=== PATIENT | male | born 1940 | race Caucasian/White ===

== ENCOUNTER 2016-03-16 08:35 | Outpatient (CLI) | payer MEDICARE ==
[2016-03-16 09:30] LABS: #Eosinphils 0.2 thou/uL (0.0-0.7); #Lymphocytes 2.7 thou/uL (1.20-3.40); #Monocytes 0.6 thou/uL (0.11-0.59); #Neutrophils 3.7 thou/uL (1.40-6.50); %Basophils 0.6 % (0.0-1.0); %Eosinophils 2.7 % (0.0-10.0); %Lymphocytes 37.3 % (21.0-51.0); %Monocytes 8.1 % (0.0-10.0); Hematocrit 43.8 % (42.0-52.0); Mean Platelet Volume 7.6 fL (7.4-10.4); Red Blood Cell (RBC) Count 4.75 mill/uL (4.70-6.10); White Blood Cell (WBC) Count 7.3 thou/uL (4.8-10.8)
== END 2016-03-16 08:36 | disposition home or self-care (01) ==
LOC: NAV LABSP 08:35
PROVIDERS: ATTEND Internal Medicine
DX: R50.9 Fever, unspecified (principal); E11.9 Type 2 diabetes mellitus without complications; R13.10 Dysphagia, unspecified; A41.9 Sepsis, unspecified organism
CPT/HCPCS: 36415; 85025

== ENCOUNTER 2016-03-30 07:36 | Outpatient (CLI) | payer MEDICARE ==
[2016-03-30 09:12] LABS: Anion Gap 16 mmol/L (10-20); BUN (Urea Nitrogen) 7 mg/dL (8.4-25.7); Calc. Creatinine Clearance 0 mL/min (70-130); Calcium 8.1 mg/dL (7.8-10.44); Carbon Dioxide 18 mmol/L (23-31); Chloride 109 mmol/L (98-107); Estimated GFR-MDRD Greater than 90
[2016-03-30 09:19] LABS: Hemoglobin A1c 8.5 % (4.0-6.0)
== END 2016-03-30 07:37 | disposition home or self-care (01) ==
LOC: NAV LABSP 07:36
PROVIDERS: ATTEND Internal Medicine
DX: E11.9 Type 2 diabetes mellitus without complications (principal); I10 Essential (primary) hypertension
CPT/HCPCS: 36415; 80048; 83036

== ENCOUNTER 2016-05-14 07:57 | Outpatient (CLI) | payer MEDICARE ==
[2016-05-14 08:49] LABS: Anion Gap 13 mmol/L (10-20); BUN (Urea Nitrogen) 10 mg/dL (8.4-25.7); Calc. Creatinine Clearance 0 mL/min (70-130); Calcium 8.2 mg/dL (7.8-10.44); Carbon Dioxide 23 mmol/L (23-31); Chloride 112 mmol/L (98-107); Estimated GFR-MDRD Greater than 90; Potassium 3.5 mmol/L (3.5-5.1); Sodium 144 mmol/L (136-145)
[2016-05-14 08:53] LABS: Hemoglobin A1c 8.5 % (4.0-6.0)
[2016-05-14 10:29] LABS: Glucose 59 mg/dL (83-110)
== END 2016-05-14 07:58 | disposition home or self-care (01) ==
LOC: NAV LABSP 07:57
PROVIDERS: ATTEND Internal Medicine
DX: E08.9 Diabetes mellitus due to underlying condition without complications (principal); I10 Essential (primary) hypertension
CPT/HCPCS: 36415; 80048; 83036

== ENCOUNTER 2016-07-15 16:44 | Outpatient (CLI) | payer MEDICARE ==
[2016-07-15 20:16] LABS: #Basophils 0.1 thou/uL (0.0-0.2); #Eosinphils 0.4 thou/uL (0.0-0.7); #Lymphocytes 2.3 thou/uL (1.20-3.40); #Monocytes 0.4 thou/uL (0.11-0.59); #Neutrophils 3.5 thou/uL (1.40-6.50); %Basophils 0.8 % (0.0-1.0); %Lymphocytes 34.6 % (21.0-51.0); %Neutrophils 52.7 % (42.0-75.0); Hemoglobin 13.5 g/dL (14.0-18.0); Mean Corpuscular Hemoglobin 29.5 pg (27.0-31.0); Mean Corpuscular Volume 92.4 fl (80.0-94.0); Mean Platelet Volume 7.9 fL (7.4-10.4); Platelet Count 233 thou/uL (130-400); RBC Distribution Width 14.1 % (11.5-14.5); Red Blood Cell (RBC) Count 4.59 mill/uL (4.70-6.10); White Blood Cell (WBC) Count 6.7 thou/uL (4.8-10.8)
[2016-07-15 20:36] LABS: Hemoglobin A1c 6.3 % (4.0-6.0)
[2016-07-15 20:41] LABS: ALT (SGPT) 12 U/L (8-55); AST (SGOT) 11 U/L (5-34); Alkaline Phosphatase 85 U/L (40-150); Anion Gap 11 mmol/L (10-20); BUN (Urea Nitrogen) 8 mg/dL (8.4-25.7); Bilirubin, Total 0.6 mg/dL (0.2-1.2); Calc. Creatinine Clearance 0 mL/min (70-130); Calcium 8.3 mg/dL (7.8-10.44); Carbon Dioxide 28 mmol/L (23-31); Chloride 106 mmol/L (98-107); Estimated GFR-MDRD Greater than 90; Glucose 210 mg/dL (83-110); Potassium 4.1 mmol/L (3.5-5.1); Sodium 141 mmol/L (136-145)
== END 2016-07-15 16:45 | disposition home or self-care (01) ==
LOC: NAV NNR 16:44
PROVIDERS: ATTEND Internal Medicine
DX: E11.59 Type 2 diabetes mellitus with other circulatory complications (principal); I10 Essential (primary) hypertension
CPT/HCPCS: 36415; 80053; 83036; 83880; 84443; 85025

== ENCOUNTER 2016-10-28 13:58 | Outpatient (CLI) | payer MEDICARE ==
[2016-10-28 14:21] LABS: ALT (SGPT) 16 U/L (8-55); AST (SGOT) 14 U/L (5-34); Albumin 3.3 g/dL (3.4-4.8); Alkaline Phosphatase 95 U/L (40-150); Anion Gap 13 mmol/L (10-20); BUN (Urea Nitrogen) 8 mg/dL (8.4-25.7); Bilirubin, Total 0.8 mg/dL (0.2-1.2); Calc. Creatinine Clearance 0 mL/min (70-130); Calcium 8.7 mg/dL (7.8-10.44); Carbon Dioxide 27 mmol/L (23-31); Cardiac Risk 4.9 (Less than 4.5); Chloride 108 mmol/L (98-107); Cholesterol 176 mg/dl (< 200 Desired); Estimated GFR-MDRD Greater than 90; Globulin 3.1 g/dL (2.4-3.5); Glucose 201 mg/dL (83-110); HDL Cholesterol 36 mg/dL (>60 Neg Risk); LDL Cholesterol, Calculated 116 mg/dL; Potassium 3.9 mmol/L (3.5-5.1); Protein, Total 6.4 g/dL (5.8-8.1); Sodium 144 mmol/L (136-145); Triglycerides 118 mg/dL (Less than 150)
[2016-10-28 14:25] LABS: #Basophils 0.1 thou/uL (0.0-0.2); #Eosinphils 0.4 thou/uL (0.0-0.7); #Lymphocytes 2.4 thou/uL (1.20-3.40); #Monocytes 0.6 thou/uL (0.11-0.59); #Neutrophils 6.9 thou/uL (1.40-6.50); %Basophils 0.5 % (0.0-1.0); %Eosinophils 3.8 % (0.0-10.0); %Lymphocytes 23.3 % (21.0-51.0); %Monocytes 5.9 % (0.0-10.0); %Neutrophils 66.5 % (42.0-75.0); Hemoglobin 14.9 g/dL (14.0-18.0); Mean Corpuscular Hemoglobin 28.6 pg (27.0-31.0); Mean Corpuscular Volume 92.4 fl (80.0-94.0); Mean Platelet Volume 8.1 fL (7.4-10.4); Platelet Count 257 thou/uL (130-400); RBC Distribution Width 13.2 % (11.5-14.5); Red Blood Cell (RBC) Count 5.22 mill/uL (4.70-6.10); White Blood Cell (WBC) Count 10.3 thou/uL (4.8-10.8)
[2016-10-28 14:36] LABS: Hemoglobin A1c 7.8 % (4.0-6.0)
== END 2016-10-28 13:59 | disposition home or self-care (01) ==
LOC: NAVSJIPCSP 13:58
PROVIDERS: ATTEND Internal Medicine
DX: Z79.899 Other long term (current) drug therapy (principal)
CPT/HCPCS: 80053; 80061; 83036; 84443; 85025

== ENCOUNTER 2017-02-13 14:43 | Emergency (ER) | payer MEDICARE, MEDICAID ==
[2017-02-13 15:49] LABS: #Basophils 0.1 thou/uL (0.0-0.2); #Eosinphils 0.1 thou/uL (0.0-0.7); #Lymphocytes 2.1 thou/uL (1.20-3.40); #Monocytes 1.1 thou/uL (0.11-0.59); #Neutrophils 10.8 thou/uL (1.40-6.50); %Basophils 0.4 % (0.0-1.0); %Eosinophils 0.5 % (0.0-10.0); %Lymphocytes 14.8 % (21.0-51.0); %Monocytes 7.8 % (0.0-10.0); %Neutrophils 76.5 % (42.0-75.0); Hemoglobin 15.4 g/dL (14.0-18.0); Mean Corpuscular HGB CONC 31.8 g/dL (32.0-36.0); Mean Corpuscular Hemoglobin 29.3 pg (27.0-31.0); Mean Corpuscular Volume 91.9 fl (80.0-94.0); Mean Platelet Volume 10.7 fL (7.4-10.4); Platelet Count 248 thou/uL (130-400); RBC Distribution Width 12.8 % (11.5-14.5); Red Blood Cell (RBC) Count 5.26 mill/uL (4.70-6.10); White Blood Cell (WBC) Count 14.2 thou/uL (4.8-10.8)
[2017-02-13 16:12] LABS: CKMB 0.6 ng/mL (0-6.6); Troponin I 0.021 ng/mL (< 0.028)
[2017-02-13] MEDS ORDERED: Sodium Chloride 0.9% 1,000 ML ONE (16:13)
[2017-02-13 16:15] LABS: ALT (SGPT) 14 U/L (8-55); AST (SGOT) 25 U/L (5-34); Albumin 3.3 g/dL (3.4-4.8); Alkaline Phosphatase 95 U/L (40-150); Anion Gap 16 mmol/L (10-20); BUN (Urea Nitrogen) 17 mg/dL (8.4-25.7); Bilirubin, Total 1.4 mg/dL (0.2-1.2); Calc. Creatinine Clearance 0 mL/min (70-130); Calcium 8.8 mg/dL (7.8-10.44); Carbon Dioxide 25 mmol/L (23-31); Chloride 108 mmol/L (98-107); Estimated GFR-MDRD 75; Globulin 4.4 g/dL (2.4-3.5); Glucose 189 mg/dL (83-110); Potassium 4.7 mmol/L (3.5-5.1); Protein, Total 7.7 g/dL (5.8-8.1); Sodium 144 mmol/L (136-145)
--- NOTE | 2017-02-13 17:00 | RAD ---
AP VIEW CHEST: INDICATIONS: History of cough. COMPARISON: Prior exam dated 01/28/2014. IMPRESSION: No focal consolidation. Stable cardiomegaly. The remainder of the examination does not appear appre ciably changed from the comparison exam dated 01/28/2014. POS: [facility]
--- NOTE | 2017-02-13 18:48 | CT ---
ABDOMEN CT WITH CONTRAST: PELVIS CT WITH CONTRAST: HISTORY: Lower abdominal pain. CVA. Left hemiplegia. COMPARISON: None. TECHNIQUE: An abdomen and pelvis CT is performed with IV contrast. Enteric contrast was not administered. Laura nal reformatted images are submitted for interpretation. Enteric contrast was administered. FINDINGS: ABDOMEN: Presumed chronic changes in the lung bases. There are coronary calcifications. The heart size is within normal limits. No pericardial effusion. The descending thoracic aorta and the abdomi nal aorta have an overall normal caliber. No periaortic fat stranding. Possible short-segment chron ic dissection in the infrarenal abdominal aorta. Evaluation is limited by motion degradation. Symmetric attenuation of the psoas muscles. The gallbladder is surgically absent. The intrahepatic and extrahepatic portal vein is patent. Limited evaluation of the alimental canal and solid organs due to motion degradation. The liver, spl een, pancreas, and adrenal glands have appropriate enhancement. Symmetric enhancement of the kidneys. Mild cortical atrophy. No evidence of obstructive uropathy. No mesenteric mass, lymphadenopathy, free air, or free fluid. No gastrohepatic, retrocrural, or periportal lymphadenopathy. No evidence of small bowel obstruction. There is a segment of slightly prominent fluid-filled small bowel in the left hemiabdomen, measuring 3.8 cm. Findings are nonspecific, as the bowel loops proxim al and distal to this segment are decompressed. Focal ileus cannot be excluded. Limited evaluation of the ileocecal junction. The appendix cannot be assessed. No evidence of colon distention or dila tation. Scattered fecal material is present. There is diverticulosis without evidence of diverticul itis. PELVIS: There is mucosal thickening involving the urinary bladder with perivesicular stranding. Correlate for cystitis. No pelvic mass, lymphadenopathy, or free air. Non specific hypodensities in the right inguinal canal, measuring 2.6 x 1.6 cm. There is a large left in guinal hernia, containing intraabdominal fat and intraabdominal vessels, as well as a segment of the distal descending and proximal sigmoid colon. The opening of the inguinal hernia defect measures 4.4 cm. No evidence of colonic obstruction. There are no lytic or blastic lesions in the osseous structures. IMPRESSION: 1. Short-segment prominence of a segment of small bowel, nonspecific. Obstructive process is not fa vored. A small focal ileus cannot be excluded. 2. Left inguinal hernia containing mesenteric fat, as well as segment of colon through the left ingu inal hernia defect. The entire hernia was not completely assessed on this exam. No evidence of asso ciated bowel obstruction. The presence or absence of bowel strangulation/incarceration cannot be com pletely excluded, as the entire segment of herniated colon is not evaluated. Clinical correlation an d a surgical consultation are recommended. POS: [facility]
[2017-02-13 19:26] LABS: Lactic Acid 1.1 mmol/L (0.5-2.2)
[2017-02-13 22:20] LABS: Bilirubin Small (Negative); Blood, Urine Trace (Negative); Clarity Clear (Clear); Glucose, Urine (Dipstick) Negative (Negative); Leukocyte Small (Negative); Nitrite Positive (Negative); Protein, Urine (Dipstick) 100 mg/dL (Neg-Trace); Urobilinogen > or = 8.0 mg/dL (0.2-1.0); pH, Urine 5.5 (5.0-9.0)
[2017-02-13 22:29] LABS: Bacteria/HPF Rare-Few HPF (None Seen); RBC/HPF 0-3 HPF (0-3); Squamous Epithelial 0-3 HPF (0-3)
[2017-02-13] MEDS ORDERED: Cipro 250 MG TAB ONE (23:08)
== END 2017-02-14 00:08 ==
LOC: NAV ERS 14:43
DX: N30.00 Acute cystitis without hematuria (principal); J20.9 Acute bronchitis, unspecified; K21.9 Gastro-esophageal reflux disease without esophagitis; F32.9 Major depressive disorder, single episode, unspecified; I10 Essential (primary) hypertension; I69.352 Hemiplegia and hemiparesis following cerebral infarction affecting left dominant side; I25.10 Atherosclerotic heart disease of native coronary artery without angina pectoris; F03.90 Unspecified dementia, unspecified severity, without behavioral disturbance, psychotic disturbance, mood disturbance, and anxiety; Z79.82 Long term (current) use of aspirin; Z79.899 Other long term (current) drug therapy
CPT/HCPCS: 36415; 51702; 71010; 74177; 80053; 81003; 81015; 82553; 83605; 83880; 84484; 85025; 87040; 87077; 87086; 87186; 93005; 96360; 96361; J7050

== ENCOUNTER 2017-03-18 15:49 | Outpatient (CLI) | payer MEDICARE, MEDICAID | END 2017-03-18 15:50 | disposition home or self-care (01) | LOC: NAV LABSP 15:49 | PROVIDERS: ATTEND Internal Medicine | DX: J02.9 Acute pharyngitis, unspecified (principal) | CPT/HCPCS: 87081; 87430 ==

== ENCOUNTER 2017-11-04 08:46 | Outpatient (CLI) | payer MEDICARE, OTHER ==
[2017-11-04] MEDS ORDERED: Iopamidol 370 76% 100 ML VIAL ONE (09:00)
--- NOTE | 2017-11-04 10:36 | CT ---
CT ABDOMEN AND PELVIS WITH IV CONTRAST: INDICATIONS: Abdominal distention. COMPARISON: CT abdomen and pelvis from 02/13/2017. TECHNIQUE: Multiple axial tomograms obtained through the abdomen and pelvis with IV enhancement. FINDINGS: The lung bases are clear. The liver, spleen, and pancreas appear unremarkable. Post cholecystectomy changes noted. Adrenal glands and kidneys are unremarkable. No hydronephrosis. The urinary bladder is contracted a nd not well evaluated. Small bowel loops are of normal caliber. The appendix is not identified. The left inguinal hernia is again noted and is incompletely imaged. A large amount of mesenteric fat and colon herniates into the inguinal ring. There is no evidence of strangulation or bowel obstruct ion. Diverticulosis of the left colon is noted. Very mild stranding surrounds diverticula in the mid left colon. This could represent early changes of diverticulitis. There is no evidence of fluid or absc ess collection. Aorta is of normal caliber. IMPRESSION: 1. Diverticulosis of the left colon. Some minimal stranding surrounds the mid left colon. Early di verticulitis is not excluded. 2. Large left inguinal hernia. Mesenteric fat and left colon herniate into the left inguinal ring. No evidence of strangulation or bowel obstruction. POS: [facility]
== END 2017-11-04 08:47 | disposition home or self-care (01) ==
LOC: NAV CT 08:46
PROVIDERS: ATTEND Internal Medicine
DX: R14.0 Abdominal distension (gaseous) (principal); K57.30 Diverticulosis of large intestine without perforation or abscess without bleeding; K40.90 Unilateral inguinal hernia, without obstruction or gangrene, not specified as recurrent
CPT/HCPCS: 74177

== ENCOUNTER 2018-04-16 21:42 | Emergency (ER) | payer MEDICARE, OTHER ==
[~2018-04-16 21:42] MED LIST: Iopamidol 370 76% 100 ML VIAL ONE
[2018-04-16] MEDS ORDERED: Morphine 4 MG/ML VIAL ONE ×2 (22:16→22:42)
[2018-04-16] MEDS ORDERED: Ondansetron PF 4 MG/2 ML Vial ONE (22:16)
[2018-04-16 22:17] LABS: #Basophils 0.1 thou/uL (0.0-0.2); #Eosinphils 0.3 thou/uL (0.0-0.7); #Lymphocytes 2.1 thou/uL (1.20-3.40); #Monocytes 0.7 thou/uL (0.11-0.59); #Neutrophils 7.8 thou/uL (1.40-6.50); %Basophils 0.5 % (0.0-1.0); %Eosinophils 3.2 % (0.0-10.0); %Lymphocytes 18.8 % (21.0-51.0); %Monocytes 6.4 % (0.0-10.0); %Neutrophils 71.1 % (42.0-75.0); Mean Corpuscular HGB CONC 31.6 g/dL (32.0-36.0); Mean Corpuscular Hemoglobin 29.3 pg (27.0-31.0); Mean Corpuscular Volume 92.7 fL (78.0-98.0); Mean Platelet Volume 8.9 fL (7.4-10.4); Platelet Count 314 thou/uL (130-400); RBC Distribution Width 14.4 % (11.5-14.5); Red Blood Cell (RBC) Count 5.12 mill/uL (4.70-6.10); White Blood Cell (WBC) Count 10.9 thou/uL (4.8-10.8)
[2018-04-16 22:24] LABS: Prothrombin Time 13.1 SEC (12.0-14.7)
[2018-04-16 22:25] LABS: PTT 29.3 SEC (22.9-36.1)
[2018-04-16 22:36] LABS: ALT (SGPT) 19 U/L (8-55); Albumin 3.7 g/dL (3.4-4.8); Alkaline Phosphatase 111 U/L (40-150); Anion Gap 16 mmol/L (10-20); BUN (Urea Nitrogen) 9 mg/dL (8.4-25.7); Bilirubin, Total 0.9 mg/dL (0.2-1.2); Calc. Creatinine Clearance 0 mL/min (70-130); Calcium 9.5 mg/dL (7.8-10.44); Carbon Dioxide 25 mmol/L (23-31); Chloride 104 mmol/L (98-107); Estimated GFR-MDRD Greater than 90; Globulin 4.4 g/dL (2.4-3.5); Glucose 327 mg/dL (83-110); Potassium 4.8 mmol/L (3.5-5.1); Protein, Total 8.1 g/dL (5.8-8.1); Sodium 140 mmol/L (136-145)
[2018-04-16 22:51] LABS: AST (SGOT) 29 U/L (5-34); Lipase Less than 0 U/L (8-78)
--- NOTE | 2018-04-16 23:44 | CT ---
CT CHEST AND ABDOMEN AND PELVIS WITH CONTRAST: HISTORY: Fall in care home. TECHNIQUE: Axial images are obtained with coronal and sagittal reconstructed images of the thoracic and lumbar s pine. FINDINGS: CHEST: The lungs are well aerated. No evidence of hemothorax or pneumothorax seen. Some mild areas of pleural thickening present, likely chronic. No evidence of acute rib or sternal fracture seen. No other osseous abnormality seen in the chest. The mediastinum is unremarkable. Coronary artery ca lcifications seen. ABDOMEN AND PELVIS: The liver and spleen are unremarkable. Mitral annular calcifications are seen. The pancreas is unremarkable. The gallbladder has been surgically removed. The adrenal glands and kidneys are unremarkable. Multilevel lumbar degenerative changes are seen. There is a comminuted fracture involving the proxim al left femur, appearing to be an intertrochanteric type fracture. A large left inguinal hernia is present, with herniation of bowel into the left inguinal canal and sc rotum. No other acute abnormalities seen. IMPRESSION: 1. Large left inguinal hernia. 2. Intertrochanteric left femoral fracture. POS: [facility]
--- NOTE | 2018-04-16 23:47 | CT ---
CT BRAIN: HISTORY: Fall from [place] lift at assisted. TECHNIQUE: Noncontrast enhanced CT images of the brain were obtained. FINDINGS: The patient has had previous calvarial bur holes. There is marked cortical atrophy and deep white ma tter ischemic changes. No evidence of subdural or epidural hematoma is seen. IMPRESSION: Cortical atrophy and deep white matter ischemic changes. No evidence of acute intracranial abnormali ty is seen. POS: [facility]
--- NOTE | 2018-04-16 23:48 | CT ---
CT CERVICAL SPINE: HISTORY: Trauma. TECHNIQUE: Noncontrast enhanced CT images of the cervical spine obtained. Sagittal and coronal reconstructed im ages performed. FINDINGS: CT images demonstrate cervical spine alignment to be within normal limits. Disk space height loss wi th anterior and posterior osteophytes seen at C5-C6 and C6-C7. This is compatible with changes of sp ondylosis. No evidence of acute cervical spine abnormalities seen. IMPRESSION: C5-C6 and C6-C7 changes of spondylosis. No evidence of acute abnormality seen. POS: [facility]
--- NOTE | 2018-04-16 23:49 | RAD ---
LEFT FEMUR AP AND LATERAL VIEWS: HISTORY: Fall with pain. FINDINGS: AP and lateral views of the left femur demonstrate a moderately displaced left intertrochanteric femo ral fracture. The mid and distal aspect of the left femur is unremarkable. IMPRESSION: Intertrochanteric left hip fracture. POS: [facility]
[2018-04-17] MEDS ORDERED: Fentanyl 100 MCG/2 ML VIAL ONE ×2 (00:12→01:01)
== END 2018-04-17 01:05 | disposition short-term general hospital (02) ==
LOC: NAV ERS 21:42
DX: S72.142A Displaced intertrochanteric fracture of left femur, initial encounter for closed fracture (principal); K40.90 Unilateral inguinal hernia, without obstruction or gangrene, not specified as recurrent; F03.90 Unspecified dementia, unspecified severity, without behavioral disturbance, psychotic disturbance, mood disturbance, and anxiety; I10 Essential (primary) hypertension; E87.6 Hypokalemia; I25.10 Atherosclerotic heart disease of native coronary artery without angina pectoris; K21.9 Gastro-esophageal reflux disease without esophagitis; Z79.899 Other long term (current) drug therapy; Z79.1 Long term (current) use of non-steroidal anti-inflammatories (NSAID); Z79.4 Long term (current) use of insulin; Z79.82 Long term (current) use of aspirin; Y92.129 Unspecified place in nursing home as the place of occurrence of the external cause; W19.XXXA Unspecified fall, initial encounter
CPT/HCPCS: 36415; 70450; 71260; 72125; 74177; 80053; 83690; 84484; 85025; 85610; 85730; 94760; 96374; 96375; 96376; J2270; J2405; J3010; Q9967